=== PATIENT | male | born 1965 | race Caucasian/White ===

== ENCOUNTER 2017-09-29 09:34 | Emergency (ER) | payer OTHER ==
[~2017-09-29] VITALS: Ht 175.3 cm; Wt 98.8 kg
[2017-09-29 09:37] VITALS: TEMP 36.5; Ht 175.3 cm; Wt 98.8 kg
--- NOTE | 2017-09-29 09:58 | EMERGENCY ROOM VISIT NOTE ---
ED Visit Note First contact with patient: 09:41 Chief Complaint: Right thumb laceration History of Present Illness: This patient is a 51-year-old male who presents to the Emergency Department by private vehicle for evaluation of their right thumb laceration. Patient sustained the laceration while carrying a piece of recently cut sheet metal, states it slipped and sliced against his thumb. They report a mild amount of bleeding initially. They deny any numbness or tingling into the distal extremity. They report no decreased range of motion of the affected digit. They have tried no medications for the pain prior to arrival. Patient rates his current discomfort as a 7/10. Patient denies any other injuries. Patient's Tetanus status is not currently up-to-date. He is right-hand dominant. Medications: Patient denies any medications Allergies: No known allergies PMH: Patient denies any significant medical or surgical history. SHx: Lives at home with family. Denies tobacco use, alcohol use, recreational drug use. ROS: All pertinent positive and negative review of systems are appropriately documented in the History of Present Illness. Physical Exam: VITAL SIGNS - Vital signs and nursing notes were reviewed. GENERAL - Pleasant and cooperative, in no acute distress. Communicates well with provider and answers questions appropriately. SKIN - There is a 2 cm long laceration noted on the volar aspect of the right thumb. The edges gape apart with traction. No foreign bodies appreciated. Upon further examination there are no deep structures including vessel, tendon, or bony structures appreciated. There is minimal active bleeding noted. MUSCULOSKELETAL - Laceration as described above. + 5/5 strength appreciated of the affected digit. Full flexion and extension range of motion of the affected digit. NEUROLOGIC - No sensory defects of the affected digit were appreciated utilizing light touch for evaluation. VASCULAR - Capillary refill was brisk. ED Course: Patient was seen and evaluated by myself. Costs and benefits of performing primary wound closure versus no repair were discussed with the patient who verbalizes understanding. Verbal consent was obtained prior to performing the procedure. 4 cc of 1% buffered lidocaine was used to perform a digital block of the right thumb digit. The wound was cleansed and prepped in the typical sterile fashion utilizing normal saline and Betadine. The wound was sterilely draped. Once proper anesthetization was established, the wound was further examined and demonstrated no changes from the above description. The wound was copiously irrigated with normal saline and Betadine. The wound was closed using 3 simple, 5-0 nylon sutures with the wound edges being well approximated and hemostasis achieved. Patient tolerated the procedure well. No complications were met. The wound was cleansed and dressed with a Bacitracin dressing. Patient received their Adacel vaccination. Patient educated on worrisome symptoms for return visit to the Emergency Department. Patient discharged to home in good condition. Current/Historical Medications No Active Prescriptions or Reported Meds Allergies Coded Allergies: No Known Allergies (Unverified , 09/29/17) Vital Signs Date Time Temp Pulse Resp B/P (MAP) Pulse Ox O2 Delivery O2 Flow Rate FiO2 09/29/17 10:45 63 17 109/69 99 Room Air 09/29/17 09:37 36.5 69 18 98 Room Air Medications Administered Medications (Trade) Dose Ordered Sig/Debra Route Start Time Stop Time Status Last Admin Dose Admin Lidocaine HCl (Buffered Lidocaine 1% Inj) 20 ml ONE ONCE INFIL 09/29/17 10:00 09/29/17 10:01 DC 09/29/17 09:58 20 ML Diphtheria/ Pertussis/Tetanus Vacc (Adacel Inj) 0.5 ml ONCE ONCE IM. 09/29/17 10:00 09/29/17 10:01 DC 09/29/17 10:03 0.5 ML Departure Information Impression Primary Impression: Laceration of right thumb Dispostion Home / Self-Care Condition GOOD Prescriptions No Active Prescriptions or Reported Meds Referrals Chuck Milian D.O. (PCP) Patient Instructions ED Laceration Hand, [facility] Additional Instructions Discharge Instructions: You have received 3 sutures on your right thumb. These sutures are NOT dissolvable and WILL need to be removed by a health care provider in 8-10 days. You can return to the Emergency Department or contact your Primary Care Provider to have the sutures removed. Proper wound care is essential for adequate wound healing and infection prevention. You can shower and clean the wound with soap and water. Do not scour over the wound, pat dry with a towel. Do not submerse the wound (i.e. bathe or dish wash) until the sutures have been removed. You can use an antibiotic ointment with a dressing over the wound for the next 3-4 days. After this time you may leave the wound dry and open to the air. If crust develops over the wound you can use a Q-tip to apply a 1:1 peroxide:water solution to clean the wound. Look for signs of infection of the wound including: increased pain, swelling, foul discharge, streaking, or increased temperature. If any of these are noticed you should return to the Emergency Department for further assessment and treatment. As with any laceration you may have received nerve damage to the surrounding tissues. This damage may or may not be permanent. You should keep the area covered with sunscreen for the first 6 months to 1 year when at risk for exposure to help minimize scarring. You can also use scar reducing creams or Vitamin E oil to help minimize scarring. For pain control, you can use the following [id number] medicines (if >12 yo): - Regular strength (325mg/tab) Tylenol (acetaminophen) 2 tabs every 4-6 hours as needed. Do not exceed 10 tablets in a 24 hour period. Avoid taking more than 3,000mg of Tylenol per day. This includes any other sources of acetaminophen you may take on a regular basis. - Regular strength (200 mg/tab) Advil (ibuprofen) 1-2 tabs every 4-6 hours as needed. Do not exceed a dose of 2400 mg per day. Return to the emergency department if your symptoms worsen despite treatment course outlined above. Problem Qualifiers Primary Impression: Laceration of right thumb Encounter type: initial encounter Damage to nail status: without damage Foreign body presence: without foreign body Qualified Codes: S61.011A - Laceration without foreign body of right thumb without damage to nail, initial encounter
[2017-09-29] MEDS ORDERED: XYLOCAINE 1%/SOD BICARB 20 ML VIAL INFIL ONE (10:00)
[2017-09-29] MEDS ORDERED: DIPHTHERIA/TETANUS/PERTUSSIS 0.5 ML SYR/VIAL IM. ONE (10:00)
[2017-09-29 10:45] VITALS: BP 109/69; PULSE 63; O2SAT 99
== END 2017-09-29 10:46 | disposition home or self-care (01) ==
LOC: C.EDB 09:36 → C.EDA 10:46
DX: S61.011A Laceration without foreign body of right thumb without damage to nail, initial encounter (principal); W26.8XXA Contact with other sharp object(s), not elsewhere classified, initial encounter; Y93.89 Activity, other specified; Y99.8 Other external cause status; Z23 Encounter for immunization